=== PATIENT | female | born 1960 | race Hispanic/Latino ===

== ENCOUNTER 2019-12-10 13:40 | Outpatient (CLI) | payer MEDICARE, OTHER ==
--- NOTE | 2019-12-10 14:47 | BD ---
Exam: DEXA Bone Density 12/10/19 HISTORY: Postmenopausal. Lumbar Spine: BMD (g/cm2) T-SCORE L1 0.546 -4.0 L2 0.561 -4.2 L3 0.567 -4.7 L4 0.641 -3.8 L1-L4 0.581 -4.2 Left Femoral Neck: 0.593 -2.3 Total Femur: 0.748 -1.6 Impression: Osteoporosis of the lumbar spine and osteopenia of the left femoral neck. The femoral neck value is border on the osteoporosis range. POS: [facility]
== END 2019-12-10 13:41 | disposition home or self-care (01) ==
LOC: BICMAMMO 13:40
PROVIDERS: ATTEND Internal Medicine Gastroenterology
DX: Z13.820 Encounter for screening for osteoporosis (principal); N95.8 Other specified menopausal and perimenopausal disorders; M81.0 Age-related osteoporosis without current pathological fracture; M85.852 Other specified disorders of bone density and structure, left thigh
CPT/HCPCS: 77080